=== PATIENT | female | born 1960 | race Caucasian/White ===

== ENCOUNTER 2020-10-26 10:16 | Emergency (ER) | payer BC ==
[~2020-10-26 10:16] MED LIST: CITALOPRAM40 MG PO; NORCO 325 MG-51 TA1 PO
[2020-10-26] MEDS ORDERED: ZOLOFT25 M1 PO (10:23)
[2020-10-26 11:03] LABS: BASO # 0.03 (0.02-0.10); EOS # 0.19 (0.04-0.40); EOS % 3.5 % (1.0-5.0); HEMATOCRIT 44.2 % (37.0-47.0); HEMOGLOBIN 14.6 g/dL (12.5-16.0); LYMPH# 1.02 (1.50-4.00); MEAN CELL VOLUME 90 fl (78-100); MEAN CORPUSCULAR HEMOGLOBIN 30 pg (27-31); MEAN CORPUSCULAR HGB CONC 33 g/dL (33-37); MEAN PLATELET VOLUME 9.8 fl (7.4-10.4); MONO # 0.51 (0.20-0.80); NEU # 3.61 (1.40-6.50); PLATELET COUNT 237 K/mm3 (130-400); RED BLOOD COUNT 4.91 M/mm3 (4.10-5.30); RED CELL DISTRIBUTION WIDTH 12.1 % (11.5-14.5); WHITE BLOOD COUNT 5.4 K/mm3 (4.8-10.8)
[2020-10-26 11:13] LABS: ALBUMIN 3.9 g/dL (3.4-4.8); SODIUM 139 mmol/L (136-145)
[2020-10-26 11:14] LABS: CALCIUM 8.8 mg/dL (8.3-10.5)
[2020-10-26 11:15] LABS: GLUCOSE 131 mg/dL (65-105); TOTAL PROTEIN 6.7 g/dL (6.2-8.1)
[2020-10-26 11:16] LABS: CARBON DIOXIDE 24 mmol/L (23-31)
[2020-10-26 11:17] LABS: TOTAL BILIRUBIN 0.4 mg/dL (0.2-1.2)
[2020-10-26 11:21] LABS: AST-SGOT 16 U/L (5-34)
[2020-10-26 11:22] LABS: ALT/SGPT 18 U/L (0-55)
[2020-10-26 11:38] LABS: TROPONIN-I < 0.03 ng/mL (<0.030)
[2020-10-26 11:43] LABS: D-DIMER 0.22 mg/L FEU (0.15-0.50)
[2020-10-26 12:30] VITALS: BP 119/70
[2020-10-26 12:58] LABS: URINE APPEARANCE CLEAR; URINE BILIRUBIN NEGATIVE (NEGATIVE); URINE BLOOD NEGATIVE (NEGATIVE); URINE COLOR YELLOW; URINE GLUCOSE NEGATIVE (NEGATIVE); URINE KETONE NEGATIVE (NEGATIVE); URINE LEUKOCYTE ESTERASE NEGATIVE (NEGATIVE); URINE MUCUS PRESENT (NOT PRESENT); URINE NITRATE NEGATIVE (NEGATIVE); URINE PROTEIN(semi-quant) NEGATIVE (NEGATIVE); URINE UROBILINOGEN NORMAL (NORMAL)
== END 2020-10-26 12:30 | disposition home or self-care (01) ==
LOC: ED 10:16
PROVIDERS: Nurse Practitioner
DX: F41.9 Anxiety disorder, unspecified (principal); J44.9 Chronic obstructive pulmonary disease, unspecified; F17.210 Nicotine dependence, cigarettes, uncomplicated; E11.9 Type 2 diabetes mellitus without complications; Z72.820 Sleep deprivation; Z79.899 Other long term (current) drug therapy

== ENCOUNTER → 2021-09-17 | Outpatient (CLI) | payer BC ==
[~2021-09-17] MED LIST changes: +ZOLOFT25 M1 PO
== END ==
LOC: LAB 15:38
DX: N39.0 Urinary tract infection, site not specified (principal)

== ENCOUNTER → 2022-06-23 | Outpatient (CLI) | payer OTHER ==
[2022-06-23 09:15] LABS: BASO # 0.03 K/mm3 (0.02-0.10); EOS # 0.31 K/mm3 (0.04-0.40); EOS % 6.4 % (1.0-5.0); HEMATOCRIT 46.3 % (37.0-47.0); HEMOGLOBIN 14.7 g/dL (12.5-16.0); MEAN CELL VOLUME 90 fl (78-100); MEAN CORPUSCULAR HEMOGLOBIN 29 pg (27-31); MEAN CORPUSCULAR HGB CONC 32 g/dL (33-37); MEAN PLATELET VOLUME 10.3 fl (7.4-10.4); MONO # 0.44 K/mm3 (0.20-0.80); NEU # 2.92 K/mm3 (1.40-6.50); PLATELET COUNT 238 K/mm3 (130-400); RED BLOOD COUNT 5.13 M/mm3 (4.10-5.30); RED CELL DISTRIBUTION WIDTH 13.4 % (11.5-14.5); WHITE BLOOD COUNT 4.8 K/mm3 (4.8-10.8)
[2022-06-23 09:18] LABS: ALBUMIN 4.2 g/dL (3.4-4.8); POTASSIUM 4.2 mmol/L (3.5-5.1)
[2022-06-23 09:19] LABS: CALCIUM 9.6 mg/dL (8.3-10.5)
[2022-06-23 09:21] LABS: TOTAL PROTEIN 7.2 g/dL (6.2-8.1)
[2022-06-23 09:22] LABS: TOTAL BILIRUBIN 0.5 mg/dL (0.2-1.2)
== END ==
LOC: LAB 08:55
PROVIDERS: Physician Assistant
DX: Z00.00 Encounter for general adult medical examination without abnormal findings (principal); R10.9 Unspecified abdominal pain; E78.5 Hyperlipidemia, unspecified; K90.9 Intestinal malabsorption, unspecified; Z13.29 Encounter for screening for other suspected endocrine disorder; Z13.1 Encounter for screening for diabetes mellitus

== ENCOUNTER → 2022-06-24 | Outpatient (CLI) | payer OTHER | LOC: MAMMO 07:30 | DX: Z13.820 Encounter for screening for osteoporosis (principal); Z12.39 Encounter for other screening for malignant neoplasm of breast; M85.88 Other specified disorders of bone density and structure, other site; R10.11 Right upper quadrant pain; Z78.0 Asymptomatic menopausal state ==

== ENCOUNTER → 2022-08-15 | Day surgery (SDC) | payer OTHER | LOC: MSO 07:24 | DX: Z12.11 Encounter for screening for malignant neoplasm of colon (principal); Z86.010 Personal history of colon polyps | CPT/HCPCS: 00812; J2704; J7120 ==

== ENCOUNTER → 2022-09-01 | Outpatient (CLI) | payer OTHER ==
[2022-09-01 08:24] LABS: POTASSIUM 4.1 mmol/L (3.5-5.1)
[2022-09-01 08:25] LABS: CALCIUM 9.1 mg/dL (8.3-10.5)
== END ==
LOC: RAD 07:48
PROVIDERS: Physician Assistant
DX: Z00.00 Encounter for general adult medical examination without abnormal findings (principal); R91.8 Other nonspecific abnormal finding of lung field
CPT/HCPCS: Q9967

== ENCOUNTER → 2023-02-07 | Outpatient (CLI) | payer MEDICARE ==
[2023-02-07 11:37] LABS: ALBUMIN 4.1 g/dL (3.4-4.8); POTASSIUM 3.8 mmol/L (3.5-5.1)
[2023-02-07 11:38] LABS: CALCIUM 9.4 mg/dL (8.3-10.5)
[2023-02-07 11:39] LABS: TOTAL PROTEIN 7.2 g/dL (6.2-8.1)
[2023-02-07 11:41] LABS: TOTAL BILIRUBIN 0.4 mg/dL (0.2-1.2)
== END ==
LOC: RAD 08:42
PROVIDERS: Physician Assistant
DX: R79.89 Other specified abnormal findings of blood chemistry (principal)

== ENCOUNTER → 2023-02-24 | Outpatient (CLI) | payer MEDICARE ==
[2023-03-01 15:13] LABS: A/G RATIO (PEP) 1.3 (0.7-1.7); BETA GLOBULINS (PEP) 0.9 g/dL (0.7-1.3)
== END ==
LOC: RAD 08:34
PROVIDERS: Physician Assistant
DX: K57.30 Diverticulosis of large intestine without perforation or abscess without bleeding (principal); R41.3 Other amnesia; Z90.710 Acquired absence of both cervix and uterus
CPT/HCPCS: Q9967

== ENCOUNTER → 2023-03-09 | Outpatient (CLI) | payer MEDICARE | LOC: RAD 08:43 | DX: R41.3 Other amnesia (principal) | CPT/HCPCS: Q9967 ==

== ENCOUNTER → 2023-06-01 | Outpatient (CLI) | payer MEDICARE | LOC: RAD 13:48 | DX: M25.511 Pain in right shoulder (principal); M25.521 Pain in right elbow ==

== ENCOUNTER → 2024-01-18 | Outpatient (CLI) | payer MEDICARE ==
[2024-01-18 08:25] LABS: BASO # 0.03 K/mm3 (0.02-0.10); EOS # 0.25 K/mm3 (0.04-0.40); EOS % 5.8 % (1.0-5.0); HEMATOCRIT 47.3 % (37.0-47.0); HEMOGLOBIN 14.9 g/dL (12.5-16.0); LYMPH# 0.83 K/mm3 (1.50-4.00); MEAN CELL VOLUME 92 fl (78-100); MEAN CORPUSCULAR HEMOGLOBIN 29 pg (27-31); MEAN CORPUSCULAR HGB CONC 32 g/dL (33-37); MEAN PLATELET VOLUME 9.5 fl (7.4-10.4); MONO # 0.39 K/mm3 (0.20-0.80); NEU # 2.83 K/mm3 (1.40-6.50); PLATELET COUNT 258 K/mm3 (130-400); RED BLOOD COUNT 5.15 M/mm3 (4.10-5.30); WHITE BLOOD COUNT 4.3 K/mm3 (4.8-10.8)
[2024-01-18 08:45] LABS: ALBUMIN 4.2 g/dL (3.4-4.8)
[2024-01-18 08:46] LABS: CALCIUM 9.6 mg/dL (8.3-10.5)
[2024-01-18 08:48] LABS: TOTAL PROTEIN 7.1 g/dL (6.2-8.1)
[2024-01-18 08:49] LABS: TOTAL BILIRUBIN 0.2 mg/dL (0.2-1.2)
[2024-01-18 08:54] LABS: MAGNESIUM 2.1 mg/dL (1.60-2.60)
== END ==
LOC: LAB 08:09
PROVIDERS: Physician Assistant
DX: R53.83 Other fatigue (principal); R25.2 Cramp and spasm

== ENCOUNTER → 2024-02-08 | Outpatient (CLI) | payer MEDICARE | LOC: LAB 08:12 | DX: Z13.1 Encounter for screening for diabetes mellitus (principal); Z13.220 Encounter for screening for lipoid disorders; R73.9 Hyperglycemia, unspecified ==

== ENCOUNTER → 2024-04-04 | Outpatient (CLI) | payer MEDICARE ==
[2024-04-04 09:27] LABS: MAGNESIUM 2.07 mg/dL (1.60-2.60)
[2024-04-06 05:39] LABS: CERULOPLASMIN 31.7 mg/dL (())
[2024-04-08 14:09] LABS: VITAMIN B1 87.8 nmol/L (())
== END ==
LOC: LAB 08:43
PROVIDERS: Nurse Practitioner
DX: G62.9 Polyneuropathy, unspecified (principal); R41.3 Other amnesia; D86.9 Sarcoidosis, unspecified